=== PATIENT | female | born 1970 | race Two or more races ===

== ENCOUNTER 2016-07-10 11:11 | Emergency (ER) | payer OTHER ==
--- NOTE | 2016-07-10 12:50 | RAD ---
CHEST - 2 VIEWS COMPARISON: None. HISTORY: Leg symptoms. FINDINGS: Views: Frontal and lateral chest Lungs: Normal Heart and vessels: Normal Trachea and bronchi: Normal Mediastinum and stefanie: Normal Costophrenic sulci: Normal Chest wall and bones: Normal. Upper abdomen: Normal. IMPRESSION: Negative 2 view chest.
[2016-07-10] MEDS ORDERED: ACETAMINOPHEN 325 MG TABLET ONE (13:23)
[2016-07-10] MEDS ORDERED: IBUPROFEN 600 MG TABLET ONE (13:23)
== END 2016-07-10 13:31 | disposition home or self-care (01) ==
LOC: ED 11:11
DX: J06.9 Acute upper respiratory infection, unspecified (principal); E11.9 Type 2 diabetes mellitus without complications
CPT/HCPCS: 71020; 87804; 99283 ×2; A9270 ×2